=== PATIENT | female | born 2000 | race Hispanic/Latino ===

== ENCOUNTER 2022-06-28 18:37 | Inpatient (IN) | payer OTHER ==
[~2022-06-28] VITALS: Ht 160 cm; Wt 95.3 kg
[~2022-06-28 18:37] MED LIST: FIORICET-COD 51 EACH PO; IBUPROFEN400 MG PO
--- NOTE | 2022-06-28 20:59 | PR ---
[facility] [address] [facility] [place], [place] [address] Signed Progress Notes IP Datetime Report Generated by CPN: 06/28/2022 20:59 PROGRESS NOTES: [id number] Impression: Reassuring Heart Rate Procedures: Artificial ROM Plan: Continue Present Management VITAL SIGNS: [id number] Vital Signs: Reviewed; Within Normal Limits EXAM: [id number] Dilatation: 6.0 Effacement: 80 Station: -2 Contractions: q1-2 min MEMBRANES: [id number] Membranes Status: Ruptured Comments: Comfortable with epidural Amniotomy as noted Continue present mgmt Anticipate FETUS A: [id number] FHR Baseline: 145 Variability: Moderate 6-25bpm Accelerations: None Decelerations: Late FHR Category: Category II Presentation: Vertex Comments on Fetus A: isolated late deceleration. No evidence of acidemia FETUS B: [id number] Signing Physician: Gloria Londono DO Copies: ~ *Electronically Signed* 06/28/222058 GLORIA LONDONO DO PATIENT NAME: LIA LEIVA PROGRESS NOTE DATE OF : 98 PHYSICIAN: GLORIA LONDONO DO RPT #: [id number] REPORT IS CONFIDENTIAL AND NOT TO BE RELEASED WITHOUT AUTHORIZATION
--- NOTE | 2022-06-28 22:01 | PR ---
[facility] [address] [facility] [place], [place] [address] Signed Progress Notes IP Datetime Report Generated by CPN: 06/28/2022 22:01 PROGRESS NOTES: [id number] Impression: Reassuring Heart Rate Procedures: Artificial ROM Plan: Continue Present Management VITAL SIGNS: [id number] Vital Signs: Reviewed; Within Normal Limits EXAM: [id number] Dilatation: 6.0 Effacement: 80 Station: -2 Contractions: q1-2 min MEMBRANES: [id number] Membranes Status: Ruptured Comments: Not feeling contractions at all with epidural Contractions palpating mild to moderate, pattern improving Anticipate recheck in 1 hour, if no cervical change plan to start low-dose pitocin FETUS A: [id number] FHR Baseline: 145 Variability: Moderate 6-25bpm Accelerations: None Decelerations: Late FHR Category: Category II Presentation: Vertex Comments on Fetus A: isolated late deceleration. No evidence of acidemia FETUS B: [id number] Signing Physician: Gloria Londono DO Copies: ~ *Electronically Signed* 06/28/222200 GLORIA LONDONO DO PATIENT NAME: LIA LEIVA PROGRESS NOTE DATE OF : 98 PHYSICIAN: GLORIA LONDONO DO RPT #: [id number] REPORT IS CONFIDENTIAL AND NOT TO BE RELEASED WITHOUT AUTHORIZATION
--- NOTE | 2022-06-28 23:04 | PR ---
[facility] [address] [facility] [place], [place] [address] Signed Progress Notes IP Datetime Report Generated by CPN: 06/28/2022 23:04 PROGRESS NOTES: [id number] Impression: Reassuring Heart Rate Procedures: Artificial ROM Plan: Augmentation VITAL SIGNS: [id number] Vital Signs: Reviewed; Within Normal Limits EXAM: [id number] Dilatation: 6.0 Effacement: 80 Station: -2 Contractions: q1-2 min MEMBRANES: [id number] Membranes Status: Ruptured Comments: Reassuring FHR No cervical change since AROM, start low-dose pitocin Continue position changes/ peanut ball FETUS A: [id number] FHR Baseline: 145 Variability: Moderate 6-25bpm Accelerations: None Decelerations: Late FHR Category: Category II Presentation: Vertex Comments on Fetus A: isolated late deceleration. No evidence of acidemia FETUS B: [id number] Signing Physician: Gloria Londono DO Copies: ~ *Electronically Signed* 06/28/22 4788 GLORIA LONDONO DO PATIENT NAME: LIA LEIVA PROGRESS NOTE DATE OF : 98 PHYSICIAN: GLORIA LONDONO DO RPT #: [id number] REPORT IS CONFIDENTIAL AND NOT TO BE RELEASED WITHOUT AUTHORIZATION
--- NOTE | 2022-06-30 08:22 | PR ---
[facility] [address] [place], [place] [address] Signed PP Progress Notes Datetime Report Generated by CPN: 06/30/2022 08:22 SUBJECTIVE: [id number] Pain: Within Normal Limits Nausea/Vomiting: Denies Flatus: Yes Bowel Movement: No Vital Signs: [id number] Vital Signs: Reviewed; Within Normal Limits Cardiovascular: Normal Respiratory: Normal Abdomen/Uterus: Normal Lochia: Normal Breasts: Normal Extremities: Normal Progress: Not Applicable Exam Comments: NAD, resting in bed holding baby EOMI RRR No dyspnea/ retractions Abd SNTND, FFBU Ext: trace edema, neg Padmini's BL IMPRESSION/PLAN/PROCEDURES: [id number] Impression: Normal Progression Plan: Continue Present Management; Discharge Procedures: Rubella Other Procedures: varicella Progress Notes: PPD#1 s/p -admitted for spontaneous onset of labor -uncomplicated delivery -progressing well : ambulating, voiding, tolerating regular diet, lochia light. Denies dizziness/ lightheadedness at rest or with ambulating. -Hgb 9.4 PPD#1 from 10.4 on admission, discussed oral iron daily -Rubella/ Varicella non-immune, anticipate immunization prior to DC -Pt requesting DC to home today, anticipate DC unless baby NOT cleared by peds Bottlefeeding baby Desires pill for contraception Signing Physician: Gloria Londono DO *Electronically Signed* 06/30/22 08 GLORIA LONDONO DO PATIENT NAME: LIA LEIVA PROGRESS NOTE DATE OF : 98 PHYSICIAN: GLORIA LONDONO DO RPT #: [id number] REPORT IS CONFIDENTIAL AND NOT TO BE RELEASED WITHOUT AUTHORIZATION [address], [place] [address] Signed Copies: ~ *Electronically Signed* 06/30/22 0822 GLORIA LONDONO DO PATIENT NAME: LIA LEIVA PROGRESS NOTE DATE OF : 98 PHYSICIAN: GLORIA LONDONO DO RPT #: [id number] REPORT IS CONFIDENTIAL AND NOT TO BE RELEASED WITHOUT AUTHORIZATION
== END 2022-06-30 11:20 | disposition home or self-care (01) | DRG 806 ==
LOC: FBCO 18:37 → FBC 18:55
PROVIDERS: ADMIT Obstetrics & Gynecology; ATTEND Obstetrics & Gynecology
PROC: 10E0XZZ Delivery of Products of Conception, External Approach (ICD-10-PCS; principal; 2022-06-29)
PROC: 0KQM0ZZ Repair Perineum Muscle, Open Approach (ICD-10-PCS; 2022-06-29)
PROC: 10907ZC Drainage of Amniotic Fluid, Therapeutic from Products of Conception, Via Natural or Artificial Opening (ICD-10-PCS; 2022-06-29)
PROC: 00HU33Z Insertion of Infusion Device into Spinal Canal, Percutaneous Approach (ICD-10-PCS; 2022-06-29)
PROC: 3E0R3BZ Introduction of Anesthetic Agent into Spinal Canal, Percutaneous Approach (ICD-10-PCS; 2022-06-29)
DX: O99.02 Anemia complicating childbirth (principal); D62 Acute posthemorrhagic anemia; Z37.0 Single live birth; O70.1 Second degree perineal laceration during delivery; Z3A.39 39 weeks gestation of pregnancy; Z67.40 Type O blood, Rh positive; Z20.822 Contact with and (suspected) exposure to COVID-19; O76 Abnormality in fetal heart rate and rhythm complicating labor and delivery; Z87.891 Personal history of nicotine dependence
CPT/HCPCS: 01961; 36415; 85027; 86850; 86900; 86901; 87502; 90707; 90716; A9270; J2590; J2795; J7121; U0003

== ENCOUNTER 2024-12-22 16:15 | Emergency (ER) | payer OTHER ==
[~2024-12-22] VITALS: Ht 152.4 cm; Wt 89.8 kg
[2024-12-22 16:42] LABS: BASOPHILS 0.4 % (0-2); EOSINOPHILS 0.2 % (0-6); HEMATOCRIT 41.6 % (35.0-50.0); HEMOGLOBIN 14.2 g/dL (12.0-18.0); MCH 29.5 (27-36); MCHC 34.1 g/dl (30-36); MCV 86.4 fl (81-99); MONOCYTES 3.6 % (0-12); NEUTROPHILS 92.8 % (39-80); PLATELET COUNT 430 K/uL (140-440); RBC 4.81 M/ul (4.3-5.7); RDW 15.2 (10.5-15.0)
[2024-12-22] MEDS ORDERED: SODIUM CHLORIDE 0.9% 1,000 ML IV PRN (16:45)
[2024-12-22 17:09] LABS: ALBUMIN 3.3 g/dL (3.4-5.0); ALBUMIN/GLOBULIN RATIO 0.69 (1.1-2.4); ANION GAP 21.9 (7-21); BILIRUBIN, TOTAL 0.7 mg/dL (0.2-1.0); BUN/CREATININE RATIO 15.15 (6.0-28.6); CALCIUM 9.4 mg/dL (8.5-10.1); CREATININE, SERUM 0.66 mg/dL (0.55-1.02); MAGNESIUM 1.7 mg/dL (1.8-2.4); POTASSIUM 3.9 mmol/L (3.5-5.1); PROTEIN, TOTAL 8.1 g/dL (6.4-8.2)
[2024-12-22] MEDS ORDERED: SODIUM CHLORIDE 0.9% 1,000 ML IV ONE (17:15)
[2024-12-22] MEDS ORDERED: ondansetron HCL 4 MG/2 ML VIAL IV ONE (17:15)
[2024-12-22 17:43] LABS: BILIRUBIN, URINE POSITIVE (negative); BLOOD/HGB, URINE NEGATIVE (Negative); KETONE, URINE >=80 (Negative); LEUK ESTERASE, URINE NEGATIVE (negative); NITRITE, URINE NEGATIVE (negative)
[2024-12-22] MEDS ORDERED: ONDANSETRON ODT8 MG PO (19:08)
[2024-12-22 19:14] VITALS: BP 119/73
[2024-12-22] MEDS ORDERED: ONDANSETRON 4 MG HOME.PACK SL ONE (19:15)
== END 2024-12-22 19:26 | disposition home or self-care (01) ==
LOC: ED 16:15
PROVIDERS: Emergency Medicine
DX: O99.611 Diseases of the digestive system complicating pregnancy, first trimester (principal); K52.9 Noninfective gastroenteritis and colitis, unspecified; Z3A.12 12 weeks gestation of pregnancy; Z87.891 Personal history of nicotine dependence
CPT/HCPCS: 36415; 80053; 81003; 83690; 83735; 85025; 96360; 96361; 99284-25; A9270; J7030

== ENCOUNTER 2025-07-08 17:23 | Inpatient (IN) | payer OTHER ==
[~2025-07-08] VITALS: Ht 160 cm; Wt 106.6 kg
[~2025-07-08 17:23] MED LIST changes: +ONDANSETRON ODT8 MG PO
[2025-07-08] MEDS ORDERED: CALCIUM CARBONATE 500 MG CHEW PO PRN (19:45)
[2025-07-08] MEDS ORDERED: MAGNESIUM HYDROXIDE/AL HYDROX 30 ML CUP PO PRN (19:45)
[2025-07-08] MEDS ORDERED: LIDOCAINE HCL 1% 30 ML SDV INJ PRN (19:45)
[2025-07-08] MEDS ORDERED: OXYTOCIN/0.9 % SODIUM CHLORIDE 30 UNITS/500 ML BAG IV SCH (19:45)
[2025-07-08] MEDS ORDERED: LACTATED RINGER'S 1,000 ML IV PRN (19:45)
[2025-07-08] MEDS ORDERED: LACTATED RINGER'S 1,000 ML IV SCH (19:45)
[2025-07-08] MEDS ORDERED: TERBUTALINE SULFATE 1 MG/ML AMP SUB-Q PRN (19:45)
[2025-07-08 20:33] LABS: MCH 25.1 PG (25.6-32.2); MCHC 31.0 g/dL (32.2-35.5); MCV 80.8 fL (79.4-94.8); RBC 3.91 M/uL (3.93-5.22)
[2025-07-08 20:37] VITALS: BP 117/72
[2025-07-08 21:09] LABS: ABO O; ANTIBODY SCREEN NEGATIVE; RH POSITIVE
[2025-07-08] MEDS ORDERED: ROPIVACAINE 0.2% 200 ML BAG ONE (21:11)
[2025-07-08] MEDS ORDERED: fentaNYL citrate 100 MCG/2 ML VIAL ONE (21:11)
[2025-07-08] MEDS ORDERED: ROPIVACAINE 0.2% 200 ML BAG EPIDURAL SCH (21:45)
[2025-07-08] MEDS ORDERED: LACTATED RINGER'S 2,000 ML IV ONE (21:45)
[2025-07-08] MEDS ORDERED: ePHEDrine sulfate 5 MG/ML SYRINGE IV PRN (21:45)
[2025-07-08] MEDS ORDERED: LACTATED RINGER'S 500 ML IV PRN (21:45)
[2025-07-08] MEDS ORDERED: Ropivacaine HCl 0.5% 30 ML VIAL ONE (22:15)
[2025-07-08] MEDS ORDERED: SODIUM CHLORIDE 0.9% 20 ML IV ONE (22:15)
[2025-07-08] MEDS ORDERED: OXYTOCIN/0.9 % SODIUM CHLORIDE 500 ML IV SCH (22:15)
[2025-07-08 22:21] LABS: AMPHETAMINES, URINE NEGATIVE (NEGATIVE); BARBITURATES, URINE NEGATIVE (NEGATIVE); BENZODIAZEPINE, URINE NEGATIVE (NEGATIVE); CANNABINOID, URINE NEGATIVE (NEGATIVE); COCAINE, URINE NEGATIVE (NEGATIVE); ECSTASY, URINE NEGATIVE (NEGATIVE); FENTANYL, URINE NEGATIVE (NEGATIVE); METHADONE, URINE NEGATIVE (NEGATIVE); OPIATES, URINE NEGATIVE (NEGATIVE); OXYCODONE, URINE NEGATIVE (NEGATIVE); PHENCYCLIDINE, URINE NEGATIVE (NEGATIVE)
[2025-07-09] MEDS ORDERED: OXYTOCIN/0.9 % SODIUM CHLORIDE 500 ML IV SCH (01:30)
[2025-07-09] MEDS ORDERED: BENZOCAINE 60 ML AEROSOL TOP PRN (01:30)
[2025-07-09] MEDS ORDERED: MAGNESIUM HYDROXIDE 30 ML UDC PO PRN (01:30)
[2025-07-09] MEDS ORDERED: LIDOCAINE 2% VISCOUS 6 ML SYR TOP ONE ×2 (01:30)
[2025-07-09] MEDS ORDERED: CALCIUM CARBONATE 500 MG CHEW PO PRN (01:30)
[2025-07-09] MEDS ORDERED: OXYCODONE HCL 5 MG TAB PO PRN (01:30)
[2025-07-09] MEDS ORDERED: ACETAMINOPHEN 325 MG TAB PO PRN (01:30)
[2025-07-09] MEDS ORDERED: MAGNESIUM HYDROXIDE/AL HYDROX 30 ML CUP PO PRN (01:30)
[2025-07-09] MEDS ORDERED: WITCH HAZEL/GLYCERIN 1 EA PAD TOP PRN (01:30)
[2025-07-09] MEDS ORDERED: SENNOSIDES/DOCUSATE 1 EA TAB PO SCH (09:00)
== END 2025-07-10 11:08 | disposition home or self-care (01) | DRG 807 ==
LOC: FBC 17:23
PROVIDERS: ADMIT Advanced Practice Midwife; ATTEND Advanced Practice Midwife
PROC: 10E0XZZ Delivery of Products of Conception, External Approach (ICD-10-PCS; principal; 2025-07-09)
PROC: 10907ZC Drainage of Amniotic Fluid, Therapeutic from Products of Conception, Via Natural or Artificial Opening (ICD-10-PCS; 2025-07-09)
PROC: 3E0R3BZ Introduction of Anesthetic Agent into Spinal Canal, Percutaneous Approach (ICD-10-PCS; 2025-07-09)
PROC: 00HU33Z Insertion of Infusion Device into Spinal Canal, Percutaneous Approach (ICD-10-PCS; 2025-07-09)
PROC: 3E033VJ Introduction of Other Hormone into Peripheral Vein, Percutaneous Approach (ICD-10-PCS; 2025-07-09)
DX: O69.81X0 Labor and delivery complicated by cord around neck, without compression, not applicable or unspecified (principal); Z37.0 Single live birth; Z3A.39 39 weeks gestation of pregnancy; O70.1 Second degree perineal laceration during delivery; Z98.890 Other specified postprocedural states; Z79.899 Other long term (current) drug therapy
CPT/HCPCS: 01960; 36415; 80307; 85027; 86850; 86900; 86901; A9270; J2795; J3010; J7121